=== PATIENT | female | born 1995 | race Caucasian/White ===

== ENCOUNTER 2020-12-15 10:05 | Emergency (ER) | payer OTHER ==
[~2020-12-15 10:05] MED LIST: COLACE 100MG C100 MG PO; FERROUS SULFAT325 MG PO; LORTAB 5-325 M1 EACH PO; PRENATABS FA T1 EACH PO
[2020-12-15 12:01] LABS: HEMOGLOBIN 13.8 gm/dl (12.3-15.3); RED BLOOD COUNT 4.47 M/UL (4.00-5.10)
[2020-12-15 12:27] LABS: BUN/CREATININE RATIO 18 (0-10)
[2020-12-15] MEDS ORDERED: BENTYL 10MG CAP10 MG PO (12:56)
== END 2020-12-15 13:38 | disposition home or self-care (01) ==
LOC: ER1 10:05
PROVIDERS: Physician Assistant
DX: R10.13 Epigastric pain (principal); R19.7 Diarrhea, unspecified; F17.210 Nicotine dependence, cigarettes, uncomplicated; Z88.6 Allergy status to analgesic agent; Z79.899 Other long term (current) drug therapy; Z20.822 Contact with and (suspected) exposure to COVID-19
CPT/HCPCS: 80053; 81001; 83690; 84703; 85025; 87086; 93005; 99285; U0002

== ENCOUNTER → 2021-07-09 | Day surgery (SDC) | payer OTHER ==
[~2021-07-09] MED LIST changes: +BENTYL 10MG CAP10 MG PO; +HYDROCODON-ACE1 EAC4 PO; +NORGESTIMATE-E1 EAC1 PO; +ONDANSETRON ODT4 MG PO; +TYLENOL EXTRA500 MG PO
== END | disposition home or self-care (01) ==
LOC: OR 06:42
DX: K80.64 Calculus of gallbladder and bile duct with chronic cholecystitis without obstruction (principal); F17.210 Nicotine dependence, cigarettes, uncomplicated; Z20.822 Contact with and (suspected) exposure to COVID-19
CPT/HCPCS: 84703; C1729; J0690; J1100; J1170; J2250; J2405; J2704; J3010; J7030; J7120